=== PATIENT | female | born 1935 | race Caucasian/White ===

== ENCOUNTER → 2016-10-28 | Outpatient (CLI) | payer OTHER ==
--- NOTE | ~2016-10-28 | BD1 ---
[facility] A Service of [facility] & [facility] RADIOLOGY TEXT RESULTS PATIENT: NÉSTOR BLEVINS LOCATION: [facility] : 37 UNIT #: [id number] AGE: [address]: Jerri Wood MD SEX: F ORDER DR: [id number] [facility] [address] [place], [place] [address] [id number] O MR#: [id number] Acc #: [id number] NAME: NÉSTOR BLEVINS : 1935 SEX: F STUDY DATE/TIME: 10/28/2016 13:12 UNIT: [facility] ROOM: STUDY DESCRIPTION: BD Dexa Bone Dens 1+ Site Attending Physician: Jerri Wood M.D. Ordering Physician: Jerri Wood M.D. Primary Care Physician: Jerri Wood M.D. MEDICAL IMAGING REPORT This report is preliminary unless electronic signature is present EXAM DXA scan 10/28/2016 HISTORY Status post menopause with no hormone replacement therapy. Osteopenia. Hypertension with blood pressure medication for 10 years. FINDINGS Bone mineral density in the lumbar spine from L1-L4 is 1.262 g/cm2 which is 2 standard deviations above the mean when compared to the young adult reference population which is within the range of normal. This is 4.6 standard deviations above the mean when compared to the age-matched population. Compared with 04/20/2013, there has been an increase in bone mineral density in the lumbar spine of 11.2%. Bone mineral density in the left femoral neck was 0.775 g/cm2 which is 0.7 standard deviations below the mean when compared to the young adult reference population which is within the range of normal. This is 1.6 standard deviations above the mean when compared to the age-matched population. Compared with 04/20/2013, there has been a decrease in bone mineral density in the left hip of 5.2%. IMPRESSION Bone mineral density in the lumbar spine and left hip within the range of normal. Compared with 04/20/2013, there has been an increase in bone mineral density in the lumbar spine and a decrease in bone mineral density in the left hip. Dictated by... Álvaro Birch M.D. THIS IS AN ELECTRONICALLY VERIFIED REPORT [facility] A Service of [facility] & [facility] RADIOLOGY TEXT RESULTS PATIENT: NÉSTOR BLEVINS LOCATION: [facility] : 37 UNIT #: [id number] AGE: [address]: Jerri Wood MD SEX: F ORDER DR: Álvaro Birch M.D. at 10/29/2016 2:37 PM KRT/pcl TD: 10/28/2016 19:18 JOB #: [id number] MEDICAL IMAGING REPORT Page 1 of 1 COPY
--- NOTE | ~2016-10-28 | MY29 ---
[facility] A Service of [facility] RADIOLOGY TEXT RESULTS PATIENT: NÉSTOR BLEVINS LOCATION: [facility] : 37 UNIT #: [id number] AGE: [address]: Jerri Wood MD SEX: F ORDER DR: [id number] [facility] [address] [place], [place] [address] [id number] O MR#: [id number] Acc #: [id number] NAME: NÉSTOR BLEVINS : 1935 SEX: F STUDY DATE/TIME: 10/28/2016 13:01 UNIT: [facility] ROOM: STUDY DESCRIPTION: MY BLANQUITA SCREENING W/ CAD BILAT Attending Physician: Jerri Wood M.D. Ordering Physician: Jerri Wood M.D. Primary Care Physician: Jerri Wood M.D. MEDICAL IMAGING REPORT This report is preliminary unless electronic signature is present EXAM Digital screening mammogram, 10/28/2016; [facility]. HISTORY 81-year-old woman, positive family history, sister. Annual screen. COMPARISON Mammograms date to 03/24/2006, with most recent 01/22/2015. FINDINGS Digital imaging of each breast was completed utilizing a two-view examination of each breast in craniocaudal and mediolateral-oblique projections. Review and interpretation of digital mammograms include a second review in conjunction with FDA-approved CAD device. There is a normal parenchymal presentation bilaterally consistent with the patient's age. There are no breast masses imaged and no parenchymal asymmetry is visualized. There are no suspicious microcalcifications and I see no focal architectural disturbance. IMPRESSION Negative screening digital mammogram. One-year followup recommended. Patients over the age of 40 are entered into a reminder system with target due date for the next mammogram. A result letter will also be sent to the patient. BIRADS: 1 Negative. Dictated by... Deyvi Chavez M.D. [facility] A Service [facility] RADIOLOGY TEXT RESULTS PATIENT: NÉSTOR BLEVINS LOCATION: [facility] : 39 UNIT #: [id number] AGE: [address]: Jerri Wood MD SEX: F ORDER DR: THIS IS AN ELECTRONICALLY VERIFIED REPORT Deyvi Chavez M.D. at 10/29/2016 8:02 AM [place] TD: 10/28/2016 18:36 JOB #: [id number] MEDICAL IMAGING REPORT Page 1 of 1 COPY
== END | disposition home or self-care (01) ==
LOC: CWCC 12:30
DX: Z13.820 Encounter for screening for osteoporosis (principal); Z12.31 Encounter for screening mammogram for malignant neoplasm of breast; Z80.3 Family history of malignant neoplasm of breast
CPT/HCPCS: 77080; G0202